=== PATIENT | male | born 1930 | race Caucasian/White ===

== ENCOUNTER → 2017-10-29 | Day surgery (SDC) | payer MEDICARE ==
[2017-10-25 10:30] VITALS: BMI 25.1
[~2017-10-29] MED LIST: SIMETHICONE 40 MG/0.6 ML DROPS 2,000 MG/30 ML BOTTLE PO ONE
== END ==
LOC: ORWHC2ENDO 06:34
PROVIDERS: ATTEND Internal Medicine Gastroenterology
DX: I72.8 Aneurysm of other specified arteries (principal); D50.9 Iron deficiency anemia, unspecified
CPT/HCPCS: 91110